=== PATIENT | male | born 1955 | race Two or more races ===

== ENCOUNTER 2017-04-22 06:32 | Inpatient (IN) | payer OTHER, BC ==
[2017-04-22] MEDS: BUPIVACAINE 0.5% (SDV) 30 ML, morphine SULFATE (PF) 8 MG, EPINEPHrine 0.3 MG, KETOROLAC... IRR (06:00)
[~2017-04-22 06:32] MED LIST: CEFAZOLIN 2 GM/50 ML (PMX) 50 ML IVPB; TRANEXAMIC ACID 1,000 MG in DEXTROSE 5% 100 ML IVPB
[2017-04-22] MEDS: DEXAMETHASONE 1 MG TAB PO (07:38)
[2017-04-22] MEDS: GABAPENTIN 300 MG CAP PO ×4 (07:38→20:24)
[2017-04-22] MEDS: traMADol 50 MG TAB PO ×2 (07:38→15:04)
[2017-04-22] MEDS ORDERED: MIDAZOLAM 1 MG/ML 2 ML INJ (07:50)
[2017-04-22] MEDS ORDERED: PROPOFOL 20 ML (07:50)
[2017-04-22] MEDS ORDERED: GLYCOPYRROLATE 0.4 MG INJ (07:50)
[2017-04-22] MEDS ORDERED: ROCURONIUM 50 MG INJ (07:50)
[2017-04-22] MEDS ORDERED: DEXAMETHASONE 4 MG/ML 1 ML INJ (07:50)
[2017-04-22] MEDS ORDERED: FENTAnyl 50 MCG/ML VIAL ×2 (07:50→09:56)
[2017-04-22] MEDS ORDERED: NEOSTIGMINE 3 MG/3 ML SYRINGE (07:50)
[2017-04-22] MEDS ORDERED: ONDANSETRON 4 MG INJ (07:50)
[2017-04-22] MEDS ORDERED: CEFAZOLIN 1 GM INJ (07:50)
[2017-04-22] MEDS ORDERED: ROPIVACAINE 0.5 % 30 ML VIAL (07:51)
[2017-04-22] MEDS ORDERED: ONDANSETRON 4 MG INJ IV ×2 (10:00→11:30)
[2017-04-22] MEDS ORDERED: morphine (1 MG/ML) 10ML SYRINGE IV ×3 (10:00)
[2017-04-22] MEDS ORDERED: MIDAZOLAM 1 MG/ML 2 ML INJ IV (10:00)
[2017-04-22] MEDS ORDERED: LABETALOL HCL 20MG INJ IV (10:00)
[2017-04-22] MEDS ORDERED: IPRATROPIUM (NEB) 0.5 MG/2.5 ML AMP HHN (10:00)
[2017-04-22] MEDS ORDERED: EPHEDrine SULFATE 50 MG/5 ML SYG IV (10:00)
[2017-04-22] MEDS ORDERED: ALBUTEROL 0.083% (NEB) 2.5 MG/3 ML AMP HHN (10:00)
[2017-04-22] MEDS ORDERED: DIPHENHYDRAMINE 50 MG INJ IV ×2 (10:00→11:30)
[2017-04-22] MEDS ORDERED: MEPERIDINE 25 MG INJ IV (10:00)
[2017-04-22] MEDS ORDERED: OXYCODONE/ACETAMINOPHEN (5/325) TAB PO ×4 (10:00→11:30)
[2017-04-22] MEDS ORDERED: TRIMETHOBENZAMIDE 100 MG/ML VIAL IM (10:00)
[2017-04-22] MEDS ORDERED: FENTAnyl 50 MCG/ML VIAL IV ×3 (10:00)
[2017-04-22] MEDS: THROMBIN 5000 UNIT VIAL (10:20)
[2017-04-22] MEDS: POLYMYXIN/BACITRACIN 1L IRRIG (10:20)
[2017-04-22] MEDS: CA CHLORIDE 10% 10 ML SYRINGE (10:20)
[2017-04-22] MEDS ORDERED: LABETALOL HCL 20MG INJ (10:22)
[2017-04-22] MEDS: PROVENTIL HFA 6.7GM INHALER INH (11:00)
[2017-04-22] MEDS ORDERED: SUGAMMADEX SODIUM 200 MG/2 ML VIAL IV ×2 (11:12)
[2017-04-22] MEDS ORDERED: ZOLPIDEM 5 MG TAB PO (11:30)
[2017-04-22] MEDS ORDERED: ACETAMINOPHEN 500 MG TAB PO (11:30)
[2017-04-22] MEDS ORDERED: morphine 2 MG INJ IV (11:30)
[2017-04-22] MEDS ORDERED: MAGNESIUM HYDROXIDE 30ML CUP PO (11:30)
[2017-04-22] MEDS: TRANEXAMIC ACID 1,000 MG in DEXTROSE 5% 100 ML IV (11:56)
[2017-04-22] MEDS: hydrALAzine 20 MG INJ IV (12:58)
[2017-04-22] MEDS: LACTATED RINGER'S 1,000 ML IV* (15:02)
[2017-04-22] MEDS: DEXAMETHASONE 2 MG TAB PO (15:14)
[2017-04-22] MEDS: ALBUTEROL HFA 8 GM INHALER INH ×2 (15:30→20:14)
[2017-04-22] MEDS: CEFAZOLIN 1 GM/50 ML (PMX) 50 ML IVPB (16:45)
[2017-04-22] MEDS: ATORVASTATIN 20 MG TAB PO (20:10)
[2017-04-22] MEDS: SENNA/DOCUSATE NA (8.6MG/50MG) TAB PO (20:10)
[2017-04-22] MEDS: CYCLOBENZAPRINE 10 MG TAB PO (20:11)
[2017-04-22] MEDS: KETOROLAC 15 MG INJ IV (20:11)
[2017-04-22] MEDS: MONTELUKAST 10 MG TAB PO (20:11)
[2017-04-22] MEDS: SALMETEROL/FLUTICASONE 500/50 INHA INH (20:24)
[2017-04-22] MEDS: PANTOPRAZOLE (EC) 40 MG TAB PO (20:34)
[2017-04-23] MEDS: CEFAZOLIN 1 GM/50 ML (PMX) 50 ML IVPB ×2 (00:38→08:37)
[2017-04-23] MEDS: morphine 2 MG INJ IV (00:42)
[2017-04-23] MEDS: PANTOPRAZOLE (EC) 40 MG TAB PO (05:07)
[2017-04-23] MEDS: KETOROLAC 15 MG INJ IV (05:10)
[2017-04-23] MEDS ORDERED: PANTOPRAZOLE (EC) 40 MG TAB PO (06:00)
[2017-04-23] MEDS: GABAPENTIN 300 MG CAP PO (08:34)
[2017-04-23] MEDS: HYDROCHLOROTHIAZIDE 12.5 MG CAP PO (08:35)
[2017-04-23] MEDS: LOSARTAN 50 MG TAB PO (08:35)
[2017-04-23] MEDS: SENNA/DOCUSATE NA (8.6MG/50MG) TAB PO (08:36)
[2017-04-23] MEDS: ASPIRIN 81 MG TAB PO (08:36)
[2017-04-23] MEDS: SALMETEROL/FLUTICASONE 500/50 INHA INH (09:00)
[2017-04-23] MEDS ORDERED: ALBUTEROL HFA 8 GM INHALER INH (13:00)
[2017-04-23] MEDS ORDERED: DEXAMETHASONE 2 MG TAB PO (21:00)
== END 2017-04-23 10:31 | disposition home or self-care (01) | DRG 483 ==
LOC: SDS 06:32 → REC 06:33 → MS1 14:16
PROC: 0RRK00Z Replacement of Left Shoulder Joint with Reverse Ball and Socket Synthetic Substitute, Open Approach (ICD-10-PCS; principal; 2017-04-22 09:30)
DX: M13.812 Other specified arthritis, left shoulder (principal); I10 Essential (primary) hypertension; M75.102 Unspecified rotator cuff tear or rupture of left shoulder, not specified as traumatic; K21.9 Gastro-esophageal reflux disease without esophagitis; E78.5 Hyperlipidemia, unspecified
CPT/HCPCS: 73030; 86999; 97166; 97535